=== PATIENT | female | born 1990 | race Caucasian/White ===

== ENCOUNTER 2017-02-07 19:52 | Emergency (ER) | payer SELFPAY ==
[~2017-02-07] VITALS: Ht 167.6 cm; Wt 72.6 kg
--- NOTE | 2017-02-07 21:23 | ED.ADGEN ---
Adult General Chief Complaint Chief Complaint stubbed right pinky toe HPI HPI stubbed right 5th toe this morning. pain and bruising continued so she got worried about fracture Review of Systems Review of Systems Constitutional: Denies fever or chills [] Eyes: Denies change in visual acuity, redness, or eye pain [] HENT: Denies nasal congestion or sore throat [] Respiratory: Denies cough or shortness of breath [] Cardiovascular: No additional information not addressed in HPI [] GI: Denies abdominal pain, nausea, vomiting, bloody stools or diarrhea [] : Denies dysuria or hematuria [] Musculoskeletal: Denies back pain or joint pain [] Integument: Denies rash or skin lesions [] Neurologic: Denies headache, focal weakness or sensory changes [] Endocrine: Denies polyuria or polydipsia [] Allergies Allergies Allergies Coded Allergies Type Severity Reaction Last Updated Verified No Known Drug Allergies 02/07/17 No Physical Exam Physical Exam Constitutional: Well developed, well nourished, no acute distress, non-toxic appearance. [] HENT: Normocephalic, atraumatic, bilateral external ears normal, oropharynx moist, no oral exudates, nose normal. [] Eyes: PERRLA, EOMI, conjunctiva normal, no discharge. [] Neck: Normal range of motion, no tenderness, supple, no stridor. [] Cardiovascular:Heart rate regular rhythm, no murmur [] Lungs & Thorax: Bilateral breath sounds clear to auscultation [] Abdomen: Bowel sounds normal, soft, no tenderness, no masses, no pulsatile masses. [] Skin: Warm, dry, no erythema, no rash. [] Back: No tenderness, no CVA tenderness. [] Extremities: ecchymosis to right 5th. tender at mtp and IP. mild swelling. ROM intact, Neurologic: Alert and oriented X 3, normal motor function, normal sensory function, no focal deficits noted. [] Psychologic: Affect normal, judgement normal, mood normal. [] EKG EKG [] Radiology/Procedures Radiology/Procedures no fracture seen[] Course & Med Decision Making Course & Med Decision Making told pt to repeat xray in 2 weeks for potential occult fracture. she is to continue barb taping for 2 weeks until follow-up Final Impression Final Impression toe injury Problems: Dragon Disclaimer Josefa Disclaimer This electronic medical record was generated, in whole or in part, using a voice recognition dictation system. Departure Time of Disposition: 21:23 Disposition: 01 HOME, SELF-CARE Condition: STABLE Patient Instructions: Barb Taping of Toes Additional Instructions: ice toe. barb tape it for 4 weeks. have xray repeated in 2 weeks. naprosyn and tylenol for pain. return if symptoms worsen[] JOHN LUNA MD Feb 07, 2017 21:23
[2017-02-07 21:32] VITALS: BP 97/52
--- NOTE | 2017-02-08 08:11 | RAD ---
Right foot, 3 views, 02/07/2017: History: Little toe injury and swelling No fracture or dislocation is identified. IMPRESSION: No significant right foot abnormality is detected.
== END 2017-02-07 21:47 | disposition home or self-care (01) ==
LOC: ER 19:52
DX: S90.121A Contusion of right lesser toe(s) without damage to nail, initial encounter (principal); X58.XXXA Exposure to other specified factors, initial encounter; Y93.89 Activity, other specified; Y92.89 Other specified places as the place of occurrence of the external cause; Y99.8 Other external cause status
CPT/HCPCS: 73630; 99284